=== PATIENT | female | born 1930 | race Caucasian/White ===

== ENCOUNTER 2016-11-18 19:08 | Inpatient (IN) | payer MEDICARE, OTHER ==
[~2016-11-18 19:08] MED LIST: ISOVUE-370 76%-LOCM 1 ML ONE
[2016-11-18 20:07] LABS: #Basophils 0.1 thou/uL (0.0-0.2); #Lymphocytes 0.6 thou/uL (1.20-3.40); #Monocytes 1.1 thou/uL (0.11-0.59); #Neutrophils 8.8 thou/uL (1.40-6.50); %Basophils 0.5 % (0.0-1.0); %Eosinophils 0.1 % (0.0-10.0); %Lymphocytes 5.4 % (21.0-51.0); Hematocrit 32.8 % (36.0-47.0); Mean Platelet Volume 5.4 fL (7.4-10.4); Red Blood Cell (RBC) Count 3.23 mill/uL (4.20-5.40); White Blood Cell (WBC) Count 10.4 thou/uL (4.8-10.8)
[2016-11-18 20:42] LABS: ALT (SGPT) 100 U/L (8-55); AST (SGOT) 126 U/L (5-34); Alkaline Phosphatase 69 U/L (40-150); Anion Gap 13 mmol/L (10-20); BUN (Urea Nitrogen) 36 mg/dL (9.8-20.1); CK (CPK) 875 U/L (29-168); Calc. Creatinine Clearance 0 mL/min (70-130); Calcium 8.2 mg/dL (7.8-10.44); Carbon Dioxide 26 mmol/L (23-31); Chloride 100 mmol/L (98-107); Estimated GFR-MDRD 86; Globulin 1.9 g/dL (2.4-3.5); Protein, Total 4.4 g/dL (6.0-8.3)
[2016-11-18 20:46] LABS: Bilirubin Negative (Negative); Blood, Urine Small (Negative); Glucose, Urine (Dipstick) Negative (Negative); Ketone, Urine 15 mg/dL (Negative); Nitrite Negative (Negative); Protein, Urine (Dipstick) Trace mg/dL (Neg-Trace)
[2016-11-18 21:00] LABS: Bacteria/HPF None Seen HPF (None Seen); Hyaline Casts/LPF 4-6 HYALINE CAST LPF (0-3 Hyaline); RBC/HPF 0-3 HPF (0-3); Squamous Epithelial 0-3 HPF (0-3); WBC/HPF 0-3 HPF (0-3)
--- NOTE | 2016-11-18 21:11 | RAD ---
SINGLE VIEW OF THE CHEST: 11/18/16 COMPARISON: 11/17/16 HISTORY: Hypotension and bloody emesis. FINDINGS: Single view of the chest shows an enlarged but stable cardiomediastinal silhouette with atherosclero tic calcifications in the aorta. Increased interstitial markings are present. There is no evidence o f consolidation, mass, or pleural effusion. IMPRESSION: 1. Cardiomegaly. 2. Atherosclerotic disease. POS: [facility]
--- NOTE | 2016-11-18 21:42 | CT ---
CT ABDOMEN AND PELVIS WITH CONTRAST: 11/18/16 COMPARISON: None. HISTORY: Confusion with nausea and vomiting. Bloody emesis. TECHNIQUE: Multiple contiguous axial images were obtained in a CT of the abdomen and pelvis with contrast. Kevin nal reformats were performed. FINDINGS: There are hypodensities in the kidneys measuring up to 2.1 cm in size which represents cysts. The ga llbladder is not seen and may have been removed. There is mild central intrahepatic biliary dilatati on which may be a reservoir effect from prior cholecystectomy. No focal liver masses are seen. The a drenal glands, spleen, and pancreas are unremarkable. The patient has bilateral hip prostheses which limit evaluation of the pelvis. Moderate stool is see n throughout the colon. The large and small bowel are otherwise unremarkable. No free air, free flui d, or stranding changes are seen in the abdomen or pelvis. Atherosclerotic calcifications are seen i n the aorta. No abdominal or pelvic lymphadenopathy are seen. There are small bilateral pleural effusions with adjacent atelectasis. Degenerative changes are see n in the spine. The abdominal wall soft tissues are unremarkable. IMPRESSION: 1. No evidence of acute intra-abdominal/pelvic abnormality. 2. Bilateral renal cysts. 3. Mild central intrahepatic biliary dilatation may be a reservoir effect from prior cholecyste ctomy. POS: [facility]
[2016-11-18] MEDS ORDERED: Sodium Chloride 0.9% 100 ML ONE (22:08)
[2016-11-18] MEDS ORDERED: Vancomycin HCl 500 MG in Sodium Chloride 0.9% 100 ML IVPB SCH (23:15)
[2016-11-18] MEDS ORDERED: Ondansetron HCl/PF 4 MG/2 ML Vial IVP PRN (23:42)
[2016-11-18] MEDS ORDERED: Sodium Chloride 0.9% 1,000 ML IV SCH (23:45)
--- NOTE | 2016-11-18 23:48 | PDOC.EVN ---
Event Note - Event Note Event Note: [id number] h&p dictated 1. Dyspnea + possible pneumonia 2. Nausea, vomiting + Abnormal lft 3. Encephalopathy: r/os troke, ct head plan: see orders
[2016-11-19] MEDS ORDERED: Acetaminophen 325 MG TAB PO PRN (00:18)
[2016-11-19] MEDS ORDERED: Ondansetron HCl/PF 4 MG/2 ML Vial IVP PRN (00:18)
[2016-11-19] MEDS ORDERED: Albuterol Sulfate 2.5 mg/3 ml Neb NEB PRN (00:25)
[2016-11-19] MEDS ORDERED: Lorazepam 2 MG/ML VIAL SLOW IVP PRN (00:27)
[2016-11-19] MEDS ORDERED: Sodium Chloride 0.9% 1,000 ML IV SCH (00:30)
[2016-11-19] MEDS ORDERED: Meropenem 1 GM in Sodium Chloride 0.9% 100 ML IVPB SCH ×2 (01:00→03:30)
[2016-11-19] MEDS: Sodium Chloride 0.9% 1,000 ML IV SCH ×2 (02:30→16:07)
[2016-11-19] MEDS ORDERED: Haloperidol Lactate 5 MG/ML VIAL SLOW IVP SCH (02:30)
[2016-11-19 03:27] VITALS: BMI 25.0
[2016-11-19] MEDS ORDERED: VANCOMYCIN IVPB PRN (03:39)
[2016-11-19 05:42] LABS: Anion Gap 12 mmol/L (10-20); BUN (Urea Nitrogen) 37 mg/dL (9.8-20.1); Calc. Creatinine Clearance 67 mL/min (70-130); Carbon Dioxide 23 mmol/L (23-31); Chloride 103 mmol/L (98-107); Estimated GFR-MDRD Greater than 90
--- NOTE | 2016-11-19 07:11 | HP ---
DATE OF ADMISSION: 11/18/2016 CHIEF COMPLAINT: Nausea, vomiting, delirium. HISTORY OF PRESENT ILLNESS: The patient is an 86-year-old female with past medical history of hypertension, anxiety, posttraumatic stress disorder, GERD, asthma, now came to the ER because of nausea, vomiting. According to the patient, patient recently had right hip surgery done and is currently in rehabilitation. Patient was having confusion and lethargy for the past 5 days. Due to the confusion got worse, the patient started getting more anxious. Patient started having trouble breathing also so patient was brought to the ER. Initially, the patient was brought to ER because the patient was having nausea and vomiting. Upon ER arrival, the patient was more anxious, so patient was currently getting admitted. No other history is available from the patient at this time. According to the granddaughter, the patient was confused for the last few days. Initially, the confusion was suspected secondary to pain medication, but the pain medication was stopped a few days back, where the patient is still confused. No other complaints available on the patient. PAST MEDICAL HISTORY: As per HPI. PAST SURGICAL HISTORY: Hip surgery. SOCIAL HISTORY: No smoking, no alcohol, no drugs. FAMILY HISTORY: Reviewed. MEDICATIONS: Reviewed. REVIEW OF SYSTEMS: None available from the patient, but according to the granddaughter, patient has chronic cough. Patient having some sputum production and chest congestion and along with that, patient has some anxiety problems also. PHYSICAL EXAMINATION: CONSTITUTIONAL/VITAL SIGNS: At the time of H\T\P performed, blood pressure is 120/70, afebrile, pulse oximetry 97% on room air, respiratory rate of 18 to 20. GENERAL APPEARANCE: Patient appears tired. HEENT: Anterior naris patent. Nose normal. Ears normal. Teeth intact. Tongue is moist. NECK: Supple. No JVD. CARDIOVASCULAR SYSTEM: S1 and S2 present. Regular rate and rhythm. No murmurs , no rubs, no gallops. RESPIRATORY SYSTEM: No wheezing. Positive for rhonchi and crackles present. GASTROINTESTINAL: Abdomen is soft nontender, no guarding, no organomegaly. MUSCULOSKELETAL: Right hip positive for the same ecchymosis present on right thigh. PSYCHIATRIC: Mood calm, slightly anxious. CRANIAL NERVE SYSTEM: Patient is awake, not oriented. Follows some commands. LABORATORY DATA: Labs at the time of H\T\P performed was sodium 135, potassium 4.2, chloride of 100, CO2 of 26, BUN of 36, creatinine 0.65, AST 126, ALT 100, ammonia 21. Troponin is 0.030. Serum total protein 4.4. White count 10.4, hemoglobin 10.7, platelet count is 296. ASSESSMENT AND PLAN: The patient is an 86-year-old female. 1. Dyspnea plus cough and chest congestion, need to rule out pneumonia. Chest x-ray, no obvious infiltrate seen. We will start patient on IV antibiotics empirically for possible aspiration and we will monitor patient closely. 2. Nausea, vomiting plus abnormal LFTs. CT of the abdomen did not show any intraabdominal pathology, but positive for mild central intrahepatic biliary dilatation seen. The patient did have a cholecystectomy done, we will monitor the patient closely and we will start the patient on IV fluids and we will keep patient n.p.o. 3. Anxiety, p.r.n. anxiolytics. 4. Asthma. Plan to start patient on breathing treatments and we will monitor respiratory status closely. We will start the patient on some IV Solu-Medrol 40 q.12 h. also. 5. History of gastroesophageal reflux disease, PPI. 6. Abnormal cardiac enzymes: Will monitor cardiac enzymes closely. Will place patient on tele. Case was discussed in detail with the patient and patient's granddaughter. We will admit the patient to the IMU for close monitoring. ALVARO
[2016-11-19 07:19] LABS: #Lymphocytes 0.4 thou/uL (1.20-3.40); #Monocytes 0.4 thou/uL (0.11-0.59); %Basophils 0.2 % (0.0-1.0); %Eosinophils 0.1 % (0.0-10.0); %Lymphocytes 2.4 % (21.0-51.0); %Monocytes 2.5 % (0.0-10.0); Hematocrit 21.9 % (36.0-47.0); Mean Platelet Volume 5.2 fL (7.4-10.4); Red Blood Cell (RBC) Count 2.16 mill/uL (4.20-5.40); White Blood Cell (WBC) Count 17.9 thou/uL (4.8-10.8)
[2016-11-19] MEDS: Heparin 5,000 UNITS/ML VIAL SC SCH ×3 (07:37→20:43)
--- NOTE | 2016-11-19 07:47 | CT ---
PRELIMINARY REPORT/[facility]/EMERGENCY AFTER HOURS PROCEDURE: EXAM: CT Head Without Intravenous Contrast CLINICAL HISTORY: 86 years old, female; Signs and symptoms; Altered mental status/memory loss; Confusion or disorienta tion; Patient HX: AMS TECHNIQUE: Axial computed tomography images of the head/brain without intravenous contrast. COMPARISON: No relevant prior studies available. FINDINGS: Brain: Mild volume loss No hemorrhage. Mild white matter disease. No edema. Ventricles: Unremarkable. No ventriculomegaly. Bones/joints: Unremarkable. No acute fracture. Soft tissues: Unremarkable. Sinuses: Unremarkable as visualized. No acute sinusitis. Mastoid air cells: Unremarkable as visualized. No mastoid effusion. IMPRESSION: No intracranial hemorrhage.Please see discussion above. Thank you for allowing us to participate in the care of your patient. Dictated and Authenticated by: Cristopher Paez MD 11/19/2016 12:35 AM Central Time ([place] \T\ Jose L) FINAL REPORT CT BRAIN WITHOUT CONTRAST: I agree with the preliminary report given by Dr. Cristopher Paez of [facility]. POS: [facility]
[2016-11-19 07:58] LABS: Hematocrit 21.8 % (36.0-47.0)
[2016-11-19] MEDS: Famotidine/PF 20 mg/2ml Vial SLOW IVP SCH (08:09)
--- NOTE | 2016-11-19 09:07 | PDOC.PN ---
- Subjective Encounter Start Date: 11/19/16 Encounter Start Time: 09:05 Subjective: Confused -: No current agitation -: Fever recorded this AM - Objective MAR Reviewed: Yes Vital Signs & Weight: Vital Signs (12 hours) Temp Pulse Resp BP Pulse Ox 11/19/16 08:00 100.1 F H 90 20 131/42 L 100 11/19/16 07:45 100 25 H 91 L 11/19/16 07:44 99.9 F H 100 24 H 93 L 11/19/16 04:00 99.9 F H 100 24 H 119/46 L 93 L 11/19/16 03:05 103 H 29 H 98 11/19/16 01:20 99.9 F H 100 24 H 92 L 11/19/16 00:35 99.4 F 94 26 H 113/39 L 92 L Weight Weight 137 lb 1.6 oz I&O: 11/18/16 11/19/16 11/20/16 06:59 06:59 06:59 Intake Total 420 Output Total 650 Balance -230 Result Diagrams: 11/19/16 07:43 11/19/16 04:28 Phys Exam - Physical Examination Constitutional: NAD HEENT: moist MMs, sclera anicteric Neck: no nodes, no JVD Respiratory: no wheezing, no rales Cardiovascular: no significant murmur, no rub Gastrointestinal: soft confused Lymphatic: no nodes Dx/Plan (1) Encephalopathy Code(s): G93.40 - ENCEPHALOPATHY, UNSPECIFIED Status: Acute (2) Acute respiratory failure Code(s): J96.00 - ACUTE RESPIRATORY FAILURE, UNSP W HYPOXIA OR HYPERCAPNIA Status: Acute (3) Nausea & vomiting Code(s): R11.2 - NAUSEA WITH VOMITING, UNSPECIFIED Status: Acute - Plan * AMS: CT brain without acute issue, appreciate neurology consult * Acute Respiratory Failure with Fever and Leukocytosis (likely PNA): CXR without infiltrate, appreciate pulm input, continue abx, Bcxs: NGTD * N/V/Elevated LFTs: CT a/p with mild central intrahepatic bilary dilatation, check LFTS in AM, prn antiemetics * Physical Debility: PT/OT * check labs in AM
--- NOTE | 2016-11-19 10:43 | ULT ---
BILATERAL LOWER EXTREMITY VENOUS DUPLEX ULTRASOUND INCLUDING COLOR AND SPECTRAL DOPPLER IMAGING: Date: 11/19/16 HISTORY: 86-year-old female with bilateral leg edema and right leg bruising after falling. FINDINGS: Exam performed from groin to ankle, including visualized greater saphenous, common femoral, superfic ial femoral, profunda femoral, popliteal, trifurcation, and posterior tibial vein regions are evalua belgica. There is phasic flow at all levels with normal compressibility and normal augmentation. No intr aluminal thrombus. IMPRESSION: No evidence for deep venous thrombosis. POS: [facility]
[2016-11-19] MEDS ORDERED: Vancomycin HCl 1 GM in Sodium Chloride 0.9% 250 ML 300 ML IVPB SCH (11:00)
--- NOTE | 2016-11-19 11:29 | CON ---
DATE OF CONSULTATION: 11/19/2016 CONSULTING PHYSICIAN: Dr. Quoc Chance from the hospitalist group. REASON FOR CONSULTATION: Delirium. HISTORY OF PRESENT ILLNESS: This is an 86-year-old female, who had a hip replacement done about a w [place] ago. She was taken to the [facility] for rehabilitation. She has been developing confusion an d lethargy for the last 5 days apparently up to the point last night where she began having projecti le vomiting. She was subsequently transferred to this facility for further evaluation. All of the history is provided by the granddaughter, who was in attendance. Apparently, it has been suspected that the patient was having an adverse reaction to narcotic pain medication. PAST MEDICAL HISTORY: 1. Hypertension. 2. Osteoarthritis. 3. Asthma. 4. Anxiety. 5. Post-traumatic stress disorder. 6. Macular degeneration. 7. Gastroesophageal reflux. PAST SURGICAL HISTORY: She has had bilateral hip surgery. ALLERGIES: None. MEDICATIONS PRIOR TO ADMISSION: 1. Albuterol metered dose inhaler as needed. 2. Azithromycin 250 mg b.i.d. 3. Buspirone 5 mg b.i.d. 4. Calcium carbonate 500 mg 3 tablets daily. 5. Cholecalciferol 1000 international units 1 tablet t.i.d. 6. Citalopram 20 mg daily. 7. Cyanocobalamin 1000 mcg daily. 8. Breo Ellipta 200/25 one puff daily. 9. Lorazepam 1 mg b.i.d. 10. Losartan 100 mg daily. 11. Multivitamin 1 daily. 12. Pantoprazole 40 mg daily. 13. Verapamil 240 mg extended release daily. 14. Acetaminophen 325 mg 2 tablets every 4 hours as needed. 15. Acetaminophen/hydrocodone 10/325 two tablets every 4 hours as needed. 16. Bisacodyl 10 mg per rectum daily as needed. 17. Clonidine 0.1 mg every 6 hours. 18. Diphenhydramine 25 mg every 6 hours - not sure if this is p.r.n. or scheduled. 19. Loperamide 2 mg as needed. 20. Tramadol 50 mg every 6 hours as needed. SOCIAL HISTORY: Prior to this admission, she has been living in a senior independent living [facility]. She has no history of tobacco, alcohol, or illicit drug use. REVIEW OF SYSTEMS: Unobtainable secondary to patient's confusion. PHYSICAL EXAMINATION: VITAL SIGNS: Temperature 99.9, pulse 100, respirations 24, O2 saturation 93% on 2 liters, and blood pressure 119/46. GENERAL: The patient is an elderly female, who is confused. HEENT: Pupils reactive. Sclerae are anicteric. Oropharynx clear. NECK: Without adenopathy, JVD, or bruits. LUNGS: Clear to auscultation without wheezing or rhonchi. CARDIOVASCULAR: S1 and S2 regular, without murmur, rub, or gallop. ABDOMEN: Soft, slightly distended, hypoactive bowel sounds. EXTREMITIES: She has diffuse bruising from her right hip downward, left leg is clear. NEUROLOGIC: She moves all 4 extremities. LABORATORY DATA AND IMAGING: White blood cell count 17.9, hematocrit 21.9, and platelet count 351. Sodium 134, potassium 4.2, chloride 103, CO2 of 23, BUN 37, creatinine 0.5, glucose 105. Chest x-r ay shows cardiomegaly without mass, effusion, or infiltrate. She did have a venogram on 11/14/2016, which showed no evidence of DVT on either side. Abdominal CT showed no significant findings. ASSESSMENT: 1. Acute delirium - likely secondary to either medications or perhaps underlying infection. 2. Precipitous drop in hemoglobin - need to recheck hemoglobin and hematocrit from this morning. 3. Nauseas/vomiting - likely related to some type of small-bowel obstruction. 4. History of asthma - in no distress at this time, therefore, I would minimize Solu-Medrol uses it for exacerbated delirium. PLAN: 1. Discontinue steroids. 2. Breathing treatments as needed. 3. Agree with antibiotics. 4. Recheck Doppler, lower extremity ultrasound. 5. Recheck H and H. 6. Minimize any extraneous medications.
[2016-11-19] MEDS: Meropenem 1 GM in Sodium Chloride 0.9% 100 ML IVPB SCH ×2 (14:11→19:24)
[2016-11-19] MEDS ORDERED: Acetaminophen 1,000 MG in Premix Bag 1 BAG IVPB PRN (17:11)
[2016-11-19] MEDS: Vancomycin HCl 1 GM in Premix Bag 1 BAG IVPB SCH (23:40)
--- NOTE | 2016-11-19 23:47 | CON ---
DATE OF CONSULTATION: 11/19/2016 REFERRING PROVIDER: Dr. Quoc Chance. REASON FOR CONSULTATION: Altered mental status. HISTORY OF PRESENT ILLNESS: Ms. Sanchez is a pleasant 86-year-old female who has been con sulted for evaluation of altered mental status. History is obtained from daughter who was present a t bedside. Daughter reports that patient recently underwent hip surgery at [facility]. This was done on 11/10/2016. After the surgery, she was discharged to rehab facility. Whgu[place] bar in the rehab, she was receiving pain medications for her pain. On approximately 4 to 5 days ago, she started having increasing episodes of confusion. She was having hallucinations and delusions. She was also talking out of her head. She was getting very anxious and combative. She was also be coming more and more weak. Occupational therapy and physical therapy in the rehab were having extre rosario difficult times to get her to stand up and walk. On yesterday, she had an episode of large vom iting. This concerned her as she has a prior history of a bowel blockage and she was worried that t his may be causing her confusion and episode of vomiting and that is why she asked them to transfer to the [facility]. The daughter reports that the patient prior to this was leading a n active lifestyle and was oriented to person, place, and time. Her memory has been intact otherwis e. PAST MEDICAL HISTORY: Significant for hypertension, GERD, asthma, posttraumatic stress disorder, an d anxiety. PAST SURGICAL HISTORY: Significant for recent hip surgery. FAMILY HISTORY: Noncontributory. SOCIAL HISTORY: She does not smoke cigarettes, drink alcohol, or use illicit drugs. CURRENT MEDICATIONS: Please review MAR. ALLERGIES: No known drug allergies. REVIEW OF SYSTEMS: Could not be obtained. PHYSICAL EXAMINATION: VITAL SIGNS: Blood pressure of 151/56, pulse of 99, temperature of 99.3, respirations of 22, O2 sat urations of 88% on room air. GENERAL: Well-developed, well-nourished , female in no apparent distress. RESPIRATORY: Clear to auscultation bilaterally. CARDIOVASCULAR: Regular rate and rhythm. NEUROLOGIC: Mental status: The patient is awake and alert, but disoriented to person, place, and t chivo. She is able to state her name, but has given a wrong age and wrong current year. She was able to follow some simple commands. Speech and language appears fluent. Cranial nerves: Pupils are 3 mm and reactive. Visual lamb are full to threat. Extraocular muscles are intact. Face is symme tric. Tongue and uvula are midline. Motor exam showed normal tone and bulk with 5/5 strength in conchis th upper and lower extremities, is on restraint in the right lower extremity, but still able to perf orm hip flexion and dorsiflexion and plantarflexion. Reflexes 2+ reflexes in both upper and lower e xtremities. Babinski: Plantar responses flexion bilaterally. Sensory: Sensation is intact and sy mmetric. Gait and Romberg coordination could not be tested. LABORATORY DATA: Reviewed, which included CBC, CMP, and urinalysis, which is significant for WBC of 17.9, hemoglobin 6.9, hematocrit of 21.8. Sodium of 134, BUN of 37, creatinine of 0.57, AST of 126 , ALT of 100, otherwise unremarkable. IMAGING STUDIES: CT of the head without contrast was reviewed, which showed no acute intracranial a bnormality. IMPRESSION: Altered mental status, likely toxic metabolic encephalopathy. ASSESSMENT AND PLAN: Ms. Sanchez is a pleasant 86-year-old female with a recent right hip surgery, presented with the confusion and delirium. I have reviewed her CT of the head without con trast, which showed no acute intracranial abnormality. Her neurological exam is a focal except the altered mentation. This would be more consistent with the patient's toxic metabolic encephalopathy. There is no further neurologic workup needed from my standpoint. Continue supportive care. Emma radha current medical management. Thank you for your consultation.
--- NOTE | 2016-11-20 00:09 | CON ---
ORTHOPEDIC CONSULTATION NOTE DATE OF CONSULTATION: 11/19/2016 REQUESTING PHYSICIAN: Quoc Chance M.D. BRIEF HISTORY OF PRESENT ILLNESS: Patient is an 86-year-old female who was admitted to [facility] 11/18 from [facility] where she was recovering from a right total hip arthroplasty. The patient began to develop delirium as well as nausea, vomiting, and as such was transferred to [place]. I was asked to see the patient due to the fact that she is now status post total hip arthroplasty on 11/10 and there were questions regarding her mobility and postoperative care. Patient has been very confused. She has required some restraints to prevent her from injuring herself and this includes tethering of her legs to prevent her from climbing out of bed. Her confusion is really not signific antly improved. She is still not really coherent or able to give any history herself. Her daughter is at bedside and is the source of this history of present illness. PAST MEDICAL HISTORY: Remarkable for asthma, gastroesophageal reflux disease and most recently deli rium, also history of anxiety and posttraumatic stress disorder. PAST SURGICAL HISTORY: Includes right total hip arthroplasty. SOCIAL HISTORY: Nonsmoker. No alcohol, no drugs. FAMILY HISTORY: Noncontributory. MEDICATIONS: I will refer you to medication reconciliation form. REVIEW OF SYSTEMS: I will refer you to the history and physical. She does not report any recent fe vers or chills. No apparent chest pain or shortness of breath and no complaints of numbness or ting ling in the lower extremity. PHYSICAL EXAMINATION: VITAL SIGNS: The patient is examined in her hospital bed in the ICU. Temperature of 99.3 degrees F ahrenheit, heart rate of 99, respiratory rate of 22 and blood pressure 151/56. GENERAL: She is not answering questions, is fidgeting with her sheets and blankets on her bed, tryi ng to pull out her Ribeiro catheter and generally agitated. HEENT: Atraumatic and normocephalic. HEART: Shows a regular rate and rhythm. LUNGS: Remarkable for breathing that is unlabored. EXTREMITIES: Remarkable for right lower extremity with a healing anterior incision from her total h ip arthroplasty. She is found to have ecchymoses along the medial aspect of the thigh and along the posterior thigh with some ecchymosis extending down into the lateral calf and foot with some mild p itting edema present as well. She is able to wiggle her ankle and foot. Her calf is soft. LABORATORY DATA: She was found to have a white count on admission of 10.4. She currently has a hem atocrit of 21.8. IMAGING DATA: X-rays; no new x-rays of the hip have been obtained. ASSESSMENT: An 86-year-old lady, now admitted for delirium of unknown cause at present and now with a drop in hematocrit. She is status post total hip arthroplasty with Dr. Ace Carrasco on 11/10. PLAN: Today, I have discussed with the patient's daughter as well as nursing that they certainly ca n use restraints as needed. The acute blood loss a week out from surgery would be unusual for the t otal hip to be the source and instead we would consider certainly GI bleed or other reasons for this hematocrit drop. She still is in the window were deep venous thrombosis prophylaxis is needed. Dara glaser currently is on heparin and I will defer to primary care as well as intensive care for decisions r egarding deep venous thrombosis prophylaxis with heparin versus Lovenox versus aspirin. She may be mobilized as her delirium clears and physical therapy to just be cautious of anterior hip precaution s. We will follow the patient peripherally while she is here in the hospital.
[2016-11-20] MEDS: Meropenem 1 GM in Sodium Chloride 0.9% 100 ML IVPB SCH ×3 (03:27→19:43)
[2016-11-20] MEDS: Sodium Chloride 0.9% 1,000 ML IV SCH ×2 (06:47→17:10)
--- NOTE | 2016-11-20 08:50 | PRG ---
DATE OF SERVICE: 11/20/2016 SUBJECTIVE: The patient remains encephalopathic. Her words are more coherent today than yesterday. Her daughter was in the room. Daughter told me that she wanted the patient to be a DNR. PHYSICAL EXAMINATION: VITAL SIGNS: Temperature 98.2, pulse 110, respirations 20, O2 sat 97% on 2 liters, blood pressure 1 64/55. HEENT: Unremarkable. NECK: No JVD. LUNGS: Coarse breath sounds. CARDIAC: S1 and S2 regular. ABDOMEN: Soft. EXTREMITIES: She has bruising over right lower extremity. LABORATORY DATA: Pending for today. ASSESSMENT: 1. Anemia. 2. Encephalopathy. 3. Status post right hip surgery. PLAN: 1. Transfuse 1 unit of PRBC. 2. Continue withhold any meds that could be aggravating delirium. 3. Follow H\T\H. 4. Continue empiric antibiotics for the time being.
[2016-11-20] MEDS: Famotidine/PF 20 mg/2ml Vial SLOW IVP SCH (08:57)
--- NOTE | 2016-11-20 09:06 | PDOC.PN ---
- Subjective Encounter Start Date: 11/20/16 Encounter Start Time: 09:04 Subjective: No overnight issues -: No agitation -: No n/v - Objective Resuscitation Status: Resuscitation Status DNR:Do Not Resuscitate MAR Reviewed: Yes Vital Signs & Weight: Vital Signs (12 hours) Temp Pulse Resp BP Pulse Ox 11/20/16 08:00 97.5 F L 108 H 22 H 166/68 H 92 L 11/20/16 07:25 110 H 20 97 11/20/16 04:09 98.2 F 109 H 24 H 164/55 H 92 L 11/19/16 23:11 93 L 11/19/16 23:05 99.8 F H 114 H 22 H 150/60 H 93 L Weight Weight 137 lb 1.6 oz I&O: 11/19/16 11/20/16 11/21/16 06:59 06:59 06:59 Intake Total 420 980 Output Total 650 1150 Balance -230 -170 Result Diagrams: 11/19/16 07:43 11/19/16 04:28 Phys Exam - Physical Examination Constitutional: NAD HEENT: moist MMs, sclera anicteric Neck: no nodes Respiratory: no wheezing, no rales Cardiovascular: no significant murmur, no rub Gastrointestinal: soft, non-tender, positive bowel sounds Lymphatic: no nodes Skin: normal turgor, cap refill <2 seconds Dx/Plan (1) Encephalopathy Code(s): G93.40 - ENCEPHALOPATHY, UNSPECIFIED Status: Acute (2) Acute respiratory failure Code(s): J96.00 - ACUTE RESPIRATORY FAILURE, UNSP W HYPOXIA OR HYPERCAPNIA Status: Acute (3) Nausea & vomiting Code(s): R11.2 - NAUSEA WITH VOMITING, UNSPECIFIED Status: Acute - Plan * AMS: CT brain without acute issue, appreciate neurology consult (metabolic encephalopthy - no further work-up needed) * Acute Respiratory Failure with Fever and Leukocytosis (likely PNA): CXR without infiltrate, appreciate pulm input, continue abx, Bcxs: NGTD * N/V/Elevated LFTs: CT a/p with mild central intrahepatic bilary dilatation, check LFTS in AM, prn antiemetics * Physical Debility: PT/OT * Recent right total hip arthroplasty: appreciate ortho input * Anemia: s/p 1 unit PRBCs on 11-19-16 * check labs in AM
[2016-11-20 11:25] LABS: Hematocrit 21.7 % (36.0-47.0); Mean Platelet Volume 5.3 fL (7.4-10.4); Red Blood Cell (RBC) Count 2.13 mill/uL (4.20-5.40); White Blood Cell (WBC) Count 21.8 thou/uL (4.8-10.8)
[2016-11-20 11:43] LABS: Band 5 % (5-11); Hypochromia SLIGHT = 6-15 cells (100X) (0-5/hpf); Neutrophil 85 % (42-75); Ovalocytes SLIGHT = 2-5 cells (100X) (0-1/hpf); Polychromasia MODERATE = 3-4 cells (100X) (0-2/hpf)
[2016-11-20 11:48] LABS: ALT (SGPT) 125 U/L (8-55); AST (SGOT) 130 U/L (5-34); Alkaline Phosphatase 82 U/L (40-150); Anion Gap 12 mmol/L (10-20); BUN (Urea Nitrogen) 31 mg/dL (9.8-20.1); Bilirubin, Total 0.9 mg/dL (0.2-1.2); Calc. Creatinine Clearance 69 mL/min (70-130); Calcium 8.1 mg/dL (7.8-10.44); Carbon Dioxide 23 mmol/L (23-31); Chloride 111 mmol/L (98-107); Estimated GFR-MDRD Greater than 90; Globulin 2.4 g/dL (2.4-3.5); Protein, Total 5.1 g/dL (6.0-8.3)
[2016-11-20] MEDS: Heparin 5,000 UNITS/ML VIAL SC SCH ×3 (12:34→21:10)
[2016-11-20] MEDS ORDERED: Furosemide 20 MG/2 ML VIAL SLOW IVP SCH (21:00)
[2016-11-20 22:29] LABS: Vancomycin, Trough 5.3 ug/mL
[2016-11-20] MEDS: Vancomycin HCl 1 GM in Premix Bag 1 BAG IVPB SCH (23:10)
[2016-11-21] MEDS: Meropenem 1 GM in Sodium Chloride 0.9% 100 ML IVPB SCH ×3 (02:28→19:21)
[2016-11-21 06:40] LABS: Anion Gap 17 mmol/L (10-20); BUN (Urea Nitrogen) 25 mg/dL (9.8-20.1); Calc. Creatinine Clearance 73 mL/min (70-130); Carbon Dioxide 21 mmol/L (23-31); Chloride 108 mmol/L (98-107); Estimated GFR-MDRD Greater than 90
[2016-11-21 07:20] LABS: Hematocrit 24.9 % (36.0-47.0); Mean Platelet Volume 5.8 fL (7.4-10.4); Red Blood Cell (RBC) Count 2.48 mill/uL (4.20-5.40); White Blood Cell (WBC) Count 22.4 thou/uL (4.8-10.8)
[2016-11-21] MEDS ORDERED: Potassium Chloride 40 MEQ in Premix Bag 1 BAG IVPB SCH (08:00)
--- NOTE | 2016-11-21 08:03 | PRG ---
DATE OF SERVICE: 11/21/2016 Ms. Sanchez continues to be confused, but not as combative as she was. PHYSICAL EXAMINATION: VITAL SIGNS: On exam her temperature is 99.0 with a T-max of 99.9, pulse 111, respirations 24, O2 s aturation in the low 90s to high 80s on 2 liters, blood pressure 155/67. GENERAL: She is awake. She is able to answer questions, but not appropriately. HEENT: She has thick secretions in her supraglottic region which are causing radiation of tubular b reath sounds in both lungs. CARDIAC: Cardiac rhythm is regular, without murmur. ABDOMEN: Soft, nontender. EXTREMITIES: Trace edema. LABORATORY DATA: Sodium 143, potassium 3.1, chloride 108, CO2 21, BUN 25, creatinine 0.5, glucose 1 10. White blood cell count 22.4, hemoglobin 7.9, hematocrit 24.9, platelet count 415. Micro shows no growth to date. ASSESSMENT: 1. She probably has chronic aspiration. 2. Encephalopathy. 3. Status post hip surgery. PLAN: 1. I NT suctioned her and was able to removed copious secretions from her supraglottic area. She m ay need a repeat NT suctioning throughout the day. 2. Continue the antibiotics, but I would discontinue the vancomycin since there has been no growth on cultures. 3. Consider decreasing IV fluids. 4. Replace potassium.
[2016-11-21] MEDS ORDERED: Potassium Chloride 40 MEQ, IV Admixture Fee 1 EACH in Sodium Chloride 0.9% 250 ML 250 ML IVPB SCH (08:15)
[2016-11-21] MEDS: Sodium Chloride 0.9% 1,000 ML IV SCH (08:17)
[2016-11-21 08:29] LABS: Band 14 % (5-11); Bite Cells SLIGHT = 2-5 cells (100X) (0-1/hpf); Burr Cells SLIGHT = 2-5 cells (100X) (0-1/hpf); Myelocyte 2 % (0-0); Neutrophil 70 % (42-75); Nucleated RBC 2 % (0); Polychromasia MODERATE = 3-4 cells (100X) (0-2/hpf)
[2016-11-21] MEDS: Dextrose 5 %-0.45 % NaCl 1,000 ML IV SCH (08:32)
[2016-11-21] MEDS: Heparin 5,000 UNITS/ML VIAL SC SCH ×3 (08:32→21:47)
[2016-11-21] MEDS: Famotidine/PF 20 mg/2ml Vial SLOW IVP SCH (08:32)
--- NOTE | 2016-11-21 08:41 | PDOC.PN ---
- Subjective Encounter Start Date: 11/21/16 Encounter Start Time: 08:40 Subjective: Confused; but more alert/awake today -: No agitation currently -: No fevers this AM - Objective Resuscitation Status: Resuscitation Status DNR:Do Not Resuscitate Vital Signs & Weight: Vital Signs (12 hours) Temp Pulse Resp BP Pulse Ox 11/21/16 07:35 99.3 F 109 H 22 H 90 L 11/21/16 07:31 89 L 11/21/16 07:28 111 H 24 H 89 L 11/21/16 07:07 99.3 F 109 H 22 H 167/61 H 91 L 11/21/16 04:00 99.0 F 111 H 22 H 155/67 H 93 L 11/21/16 03:09 94 L 11/21/16 00:52 94 L 11/21/16 00:00 99.9 F H 110 H 22 H 147/62 H 93 L 11/20/16 22:58 90 L 11/20/16 22:00 110 H 20 164/73 H 91 L Weight Weight 134 lb 6.4 oz I&O: 11/20/16 11/21/16 11/22/16 06:59 06:59 06:59 Intake Total 980 1270 Output Total 1150 2220 Balance -170 -950 Result Diagrams: 11/21/16 05:00 11/21/16 05:00 Phys Exam - Physical Examination Constitutional: NAD HEENT: moist MMs, sclera anicteric Neck: no nodes, no JVD Respiratory: no rales, no rhonchi Cardiovascular: no significant murmur, no rub Gastrointestinal: non-tender, positive bowel sounds confused Lymphatic: no nodes Skin: normal turgor, cap refill <2 seconds Dx/Plan (1) Encephalopathy Code(s): G93.40 - ENCEPHALOPATHY, UNSPECIFIED Status: Acute (2) Acute respiratory failure Code(s): J96.00 - ACUTE RESPIRATORY FAILURE, UNSP W HYPOXIA OR HYPERCAPNIA Status: Acute (3) Nausea & vomiting Code(s): R11.2 - NAUSEA WITH VOMITING, UNSPECIFIED Status: Acute - Plan * AMS: CT brain without acute issue, appreciate neurology consult (metabolic encephalopthy - no further work-up needed) * Acute Respiratory Failure with Fever and Leukocytosis (likely PNA): CXR without infiltrate, appreciate pulm input, continue abx, Bcxs: NGTD * N/V/Elevated LFTs: CT a/p with mild central intrahepatic bilary dilatation, prn antiemetics * Physical Debility: PT/OT * Recent right total hip arthroplasty: appreciate ortho input * Anemia: s/p 1 unit PRBCs on 11-19-16 * Hypokalemia: replace today and re-check labs in AM
[2016-11-21] MEDS ORDERED: Vancomycin HCl 1 GM in Premix Bag 1 BAG IVPB SCH (11:00)
[2016-11-21] MEDS ORDERED: Acetaminophen 1,000 MG in Premix Bag 1 BAG IVPB PRN (20:16)
[2016-11-22] MEDS: Meropenem 1 GM in Sodium Chloride 0.9% 100 ML IVPB SCH ×3 (03:29→20:46)
[2016-11-22] MEDS: Dextrose 5 %-0.45 % NaCl 1,000 ML IV SCH (03:45)
--- NOTE | 2016-11-22 04:27 | CON ---
DATE OF CONSULTATION: 11/21/2016 CHIEF COMPLAINT: Shortness of breath and confusion. HISTORY OF PRESENT ILLNESS: Ms. Sanchez is an 86-year-old woman who was admitted with altered menta l status. She is being treated for aspiration pneumonia. She has hypoxemia by O2 sats running in t he 88-90 range on oxygen by nasal cannula. She has been confused. She vomited the day that she cam e in, but has had no further vomiting. Currently, through the afternoon today, her mental status [place] s significantly improved according to her daughter. She is now oriented to her name and place and d ate. She had an evaluation by Speech Pathology today, which showed signs of aspiration with all con sistencies. The daughter is concerned that some of this was performed with foods that the patient d id not like the taste of and would like to continue further evaluation regarding that. The patient has been noted to be anemic during the hospital stay and she was required transfusion. She has no a bdominal pain. PAST MEDICAL HISTORY: Hypertension, asthma, PTSD, macular degeneration, gastroesophageal reflux. PAST SURGICAL HISTORY: Recent hip surgery. ALLERGIES: No known drug allergies. SOCIAL HISTORY: No alcohol, tobacco or drugs. FAMILY HISTORY: Negative for GI malignancy. MEDICATIONS: Currently include famotidine, subcutaneous heparin and meropenem. REVIEW OF SYSTEMS: Negative x10 systems reviewed except as stated in the history of present illness . PHYSICAL EXAMINATION: VITAL SIGNS: Temperature 97.9, pulse 115, blood pressure 193/81. GENERAL: She is in no acute distress. Her oxygen saturation is 90% on 3 L by nasal cannula. HEENT: Her eyes have no scleral icterus. Oropharynx is clear, without lesions. NECK: No cervical or supraclavicular lymphadenopathy. LUNGS: Have diffuse crackles and coarse breath sounds. HEART: Tachycardic, S1, S2. ABDOMEN: Soft, nontender, nondistended. Bowel sounds are present. EXTREMITIES: No lower extremity edema. LABORATORY DATA: Creatinine 0.55, bilirubin 0.9, AST 130, ALT 125, alkaline phosphatase 82, albumin 2.7. White blood cell count 22.4, hemoglobin 7.9, platelets 415. IMPRESSION: 1. Dysphagia with apparent chronic aspiration and aspiration pneumonia. The patient and her daught er indicate they would not be interested in undergoing esophagogastroduodenoscopy with PEG tube at t his point. They wish to continue to work with Speech Pathology to work on the best consistency for her. They do understand that continued oral intake is an ongoing risk for aspiration. 2. Aspiration pneumonia with hypoxia. 3. Anemia. She does not have overt gastrointestinal bleeding at this point. She has no abdominal pain or ongoing nausea. She did receive 1 unit transfusion yesterday. RECOMMENDATIONS: 1. She will continue to work with Speech Pathology. If the patient continues to show signs of aspi ration and the primary service determines with the family that they ultimately do decide to undergo or consider gastrostomy tube was an option and please call us back and we can reassess. 2. Follow for overt GI bleeding. She is a poor candidate for sedation this time given her respirat ory status. 3. I will sign off for now. Please call if GI can be of assistance.
[2016-11-22 06:01] LABS: Anion Gap 16 mmol/L (10-20); BUN (Urea Nitrogen) 16 mg/dL (9.8-20.1); Calc. Creatinine Clearance 78 mL/min (70-130); Calcium 7.7 mg/dL (7.8-10.44); Carbon Dioxide 22 mmol/L (23-31); Chloride 110 mmol/L (98-107); Estimated GFR-MDRD Greater than 90
[2016-11-22] MEDS: Famotidine/PF 20 mg/2ml Vial SLOW IVP SCH (08:00)
[2016-11-22] MEDS: Heparin 5,000 UNITS/ML VIAL SC SCH ×3 (08:00→20:47)
--- NOTE | 2016-11-22 10:19 | RAD ---
PORTABLE CHEST ONE VIEW: 11/22/2016 4:21 a.m. HISTORY: Pneumonia. COMPARISON: 11/18/2016 FINDINGS: The heart size is stable. The aorta is tortuous. There is patchy air space disease in the right up per and both lower lung lamb, with accompanying effusions. No pneumothoraces are seen. IMPRESSION: Pneumonia. POS: OFF
[2016-11-22 10:30] LABS: Iron 27 ug/dL (50-170)
[2016-11-22 10:31] LABS: Magnesium 1.4 mg/dL (1.6-2.6)
--- NOTE | 2016-11-22 13:29 | PRG ---
DATE OF SERVICE: 11/22/2016 SUBJECTIVE: This morning, she is better. Last night, she was confused. OBJECTIVE: VITAL SIGNS: Sats are 93% on 4 liters, pulse 110, temperature 97, blood pressure 106/69. HEENT: She failed a swallow test. CHEST: Decreased breath sounds without any wheezing. CARDIAC: Normal S1, S2. No gallops. ABDOMEN: Soft, no masses. LABORATORY DATA: Electrolytes are normal. X-ray showed bilateral infiltrate, bilateral pleural eff usion, right upper lobe pneumonia. IMPRESSION: Bilateral aspiration, respiratory failure, advanced age, probably dementia. She is a D O NOT RESUSCITATE. PLAN: Agree with the PEG. She is now safe to swallow. We will discuss with the granddaughter. In the meantime, neb treatment s and steroids. We will follow.
[2016-11-22] MEDS ORDERED: Magnesium 2 GM/NS 0.9% 100 ML 2 GM in Premix Bag 1 BAG IVPB SCH (13:30)
--- NOTE | 2016-11-22 13:38 | PDOC.PN ---
- Subjective Encounter Start Date: 11/22/16 Encounter Start Time: 13:30 Patient seen and examined, states she feels fine for now, she feels a little weak but otherwise has no other complaints. - Objective Resuscitation Status: Resuscitation Status DNR:Do Not Resuscitate Vital Signs & Weight: Vital Signs (12 hours) Temp Pulse Resp BP Pulse Ox 11/22/16 11:40 98.4 F 114 H 20 164/71 H 91 L 11/22/16 08:15 114 H 32 H 93 L 11/22/16 08:00 97.7 F 114 H 32 H 92 L 11/22/16 07:21 97.7 F 102 H 20 169/69 H 92 L 11/22/16 04:00 98.5 F 103 H 22 H 162/75 H 91 L Weight Weight 132 lb I&O: 11/21/16 11/22/16 11/23/16 06:59 06:59 06:59 Intake Total 1270 1700 Output Total 2220 2750 Balance -950 -1050 Result Diagrams: 11/21/16 05:00 11/22/16 05:05 Phys Exam - Physical Examination Constitutional: NAD HEENT: PERRLA, moist MMs, sclera anicteric Neck: no nodes, no JVD, supple Respiratory: no wheezing, no rales, no rhonchi Cardiovascular: RRR, no significant murmur, no rub Gastrointestinal: soft, non-tender, no distention Musculoskeletal: no edema, pulses present Neurological: non-focal, normal sensation Psychiatric: normal affect, A&O x 3 Skin: no rash, normal turgor Dx/Plan (1) Dysphagia Code(s): R13.10 - DYSPHAGIA, UNSPECIFIED Status: Acute (2) Iron deficiency Code(s): E61.1 - IRON DEFICIENCY Status: Acute (3) Iron deficiency anemia Code(s): D50.9 - IRON DEFICIENCY ANEMIA, UNSPECIFIED Status: Acute (4) Dyspnea Code(s): R06.00 - DYSPNEA, UNSPECIFIED Status: Acute - Plan * At this point in time patient continues to have dysphagia and still unable to fully swallow, all options discussed with the patient including options of PEG tube placement. * Patient states she does not want a PEG tube currently and she would like to try food orally. * Case d/w speech therapy to see if patient can swallow any food * Patient states that she would like to discuss any plans for PEG with two of her daughters first and then make a decision * Granddaughter at bedside who states she does not want a PEG to be placed, for now will await final decision once patient has arrived at one, she has the capacity to make her own decisions when I examined her * Patient also informed her iron levels were low and her potassium may have been low due to low Mg levels, will give IV magnesium 2g x 1 dose and venofer 200mg IV q24hrs x 3 doses * Case and plan d/w patient at length, she understands and agrees with this plan
[2016-11-22] MEDS: Iron Sucrose Complex 200 MG in Sodium Chloride 0.9% 250 ML 250 ML IVPB SCH (14:15)
[2016-11-22] MEDS ORDERED: Acetaminophen/Codeine 30-300mg Tablet PO PRN (22:15)
[2016-11-23] MEDS: Dextrose 5 %-0.45 % NaCl 1,000 ML IV SCH ×2 (03:32→23:45)
[2016-11-23] MEDS: Meropenem 1 GM in Sodium Chloride 0.9% 100 ML IVPB SCH ×4 (03:32→19:55)
[2016-11-23] MEDS ORDERED: Milk Of Magnesia 30 ML UDCUP PO PRN (07:13)
[2016-11-23] MEDS ORDERED: Loperamide HCl 2 MG CAP PO PRN (07:13)
[2016-11-23] MEDS ORDERED: Ondansetron ODT 4 MG TAB PO PRN (07:13)
[2016-11-23] MEDS ORDERED: Sodium Chloride 0.65% Nasal 44 ML BOT EA NARE PRN (07:13)
[2016-11-23] MEDS ORDERED: Mag-Al 1200 mg/1200 mg/30 ML UDCUP PO PRN (07:13)
[2016-11-23] MEDS ORDERED: Artificial Tears 18 DROP/0.9 ML EA EYE PRN (07:13)
[2016-11-23] MEDS ORDERED: Diabetic Tussin 200 MG/10 ML UDCUP PO PRN (07:13)
[2016-11-23] MEDS ORDERED: Senokot 8.6 MG TAB PO PRN (07:13)
[2016-11-23] MEDS ORDERED: Eucerin (Mineral Oil/Petrolatum,White) 30 gm Jar TOP PRN (07:13)
[2016-11-23] MEDS: Heparin 5,000 UNITS/ML VIAL SC SCH ×3 (08:49→19:56)
[2016-11-23] MEDS: Famotidine/PF 20 mg/2ml Vial SLOW IVP SCH (08:49)
--- NOTE | 2016-11-23 10:12 | PDOC.PN ---
- Subjective Encounter Start Date: 11/23/16 Encounter Start Time: 08:20 -: old records requested/rev pt is hypoxic and requires oxygen, she is tolerating current diet, family bedside - Objective Resuscitation Status: Resuscitation Status DNR:Do Not Resuscitate MAR Reviewed: Yes Vital Signs & Weight: Vital Signs (12 hours) Temp Pulse Resp BP Pulse Ox 11/23/16 10:05 105 H 28 H 88 L 11/23/16 08:04 97.8 F 103 H 20 150/64 H 74 L 11/23/16 06:44 104 H 90 L 11/23/16 04:00 98.0 F 99 20 163/69 H 91 L 11/23/16 02:45 90 L 11/23/16 02:20 24 H 90 L 11/23/16 00:00 97.5 F L 105 H 20 179/74 H 91 L 11/22/16 22:31 102 H 28 H 90 L Weight Weight 128 lb I&O: 11/22/16 11/23/16 11/24/16 06:59 06:59 06:59 Intake Total 1700 Output Total 2750 1225 Balance -1050 -1225 Result Diagrams: 11/21/16 05:00 11/22/16 05:05 Radiology Reviewed by me: Yes Phys Exam - Physical Examination Constitutional: NAD HEENT: PERRLA, moist MMs, sclera anicteric Neck: no JVD, supple bilateral coarse breath sound Cardiovascular: RRR, no significant murmur, no rub Gastrointestinal: soft, non-tender, no distention, positive bowel sounds Musculoskeletal: no edema, pulses present bruise left UE due to IV Neurological: moves all 4 limbs Lymphatic: no nodes Psychiatric: normal affect Skin: no rash, normal turgor Dx/Plan (1) Abnormal LFTs Code(s): R79.89 - OTHER SPECIFIED ABNORMAL FINDINGS OF BLOOD CHEMISTRY Status : Acute (2) Acute encephalopathy Code(s): G93.40 - ENCEPHALOPATHY, UNSPECIFIED Status: Acute (3) Acute respiratory failure with hypoxemia Code(s): J96.01 - ACUTE RESPIRATORY FAILURE WITH HYPOXIA Status: Acute (4) Aspiration pneumonia Code(s): J69.0 - PNEUMONITIS DUE TO INHALATION OF FOOD AND VOMIT Status: Acute (5) Demand ischemia Code(s): I24.8 - OTHER FORMS OF ACUTE ISCHEMIC HEART DISEASE Status: Acute (6) Hypokalemia Code(s): E87.6 - HYPOKALEMIA Status: Acute (7) Hypomagnesemia Code(s): E83.42 - HYPOMAGNESEMIA Status: Acute (8) Oropharyngeal dysphagia Code(s): R13.12 - DYSPHAGIA, OROPHARYNGEAL PHASE Status: Acute (9) Sepsis with acute organ dysfunction Code(s): A41.9 - SEPSIS, UNSPECIFIED ORGANISM; R65.20 - SEVERE SEPSIS WITHOUT SEPTIC SHOCK Status: Acute (10) Macrocytic anemia Code(s): D53.9 - NUTRITIONAL ANEMIA, UNSPECIFIED Status: Chronic - Plan cont current plan of care, plan discussed w/ family, marino catheter, continue antibiotics, PT/OT, psychotherapist social worker, speech therapy, respiratory therapy * pt has decided that she will not go for PEG tube * she is at risk for recurrent aspiration pneumonia and she understands that * family prefers SNU on discharge * she is not ready for discharge yet * will repeat labs tomorrow * meanwhile will continue iv antibiotics . meropenam * medication reviewed as below * symptomatic treatment. Review of Systems - Review of Systems Constitutional: negative: Fever, Chills, Sweats, Weakness, Malaise, Other Respiratory: Cough, Shortness of Breath. negative: Dry, Hemoptysis, SOB with Excertion, Pleuritic Pain, Sputum, Wheezing Cardiovascular: negative: Chest Pain, Palpitations, Orthopnea, Paroxysmal Noc. Dyspnea, Edema, Light Headedness, Other Gastrointestinal: negative: Nausea, Vomiting, Abdominal Pain, Diarrhea, Constipation, Melena, Hematochezia, Other Genitourinary: negative: Dysuria, Frequency, Incontinence, Hematuria, Retention , Other Musculoskeletal: negative: Neck Pain, Shoulder Pain, Arm Pain, Back Pain, Hand Pain, Leg Pain, Foot Pain, Other Skin: negative: Rash, Lesions, Pantera, Bruising, Other - Medications/Allergies Allergies/Adverse Reactions: Allergies Allergy/AdvReac Type Severity Reaction Status Date / Time No Known Drug Allergies Allergy Verified 11/18/16 23:08 Medications: Current Medications Acetaminophen (Tylenol) 650 mg PO Q4H PRN PRN Reason: Headache/Fever or Pain Acetaminophen/Codeine Phosphate (Tylenol #3) 1 tab PO Q4H PRN PRN Reason: Pain Last Admin: 11/22/16 22:32 Dose: 1 tab Al Hydroxide/Mg Hydroxide (Maalox) 15 ml PO Q4H PRN PRN Reason: Heartburn or Indigestion Albuterol Sulfate (Ventolin) 2.5 mg NEB Q2H PRN PRN Reason: Wheezing Last Admin: 11/21/16 00:52 Dose: 2.5 mg Albuterol/Ipratropium (Duoneb) 3 ml NEB [id number] [facility] Last Admin: 11/23/16 10:05 Dose: 3 ml Artificial Tears (Tears Naturale) 0 drop EA EYE PRN PRN PRN Reason: Dry Eyes Famotidine (Pepcid) 20 mg SLOW IVP DAILY [facility] Last Admin: 11/22/16 08:00 Dose: 20 mg Guaifenesin (Robitussin Sf) 200 mg PO Q4H PRN PRN Reason: Cough Heparin Sodium (Porcine) (Heparin) 5,000 units SC TID [facility] Last Admin: 11/22/16 20:47 Dose: 5,000 units Hydralazine HCl (Apresoline) 10 mg SLOW IVP Q4H PRN PRN Reason: SBP <180 Last Admin: 11/22/16 20:50 Dose: 10 mg Meropenem 1 gm/ Sodium (Chloride) 100 mls @ 200 mls/hr IVPB 0300,1100,1900 [facility] Last Admin: 11/23/16 03:32 Dose: 100 mls Dextrose/Sodium Chloride (D5 1/2 Ns) 1,000 mls @ 50 mls/hr IV .Q20H [facility] Last Admin: 11/23/16 03:32 Dose: 1,000 mls Iron Sucrose 200 mg/ Sodium (Chloride) 260 mls @ 125 mls/hr IVPB Q24HR [facility] Stop: 11/24/16 15:35 Last Admin: 11/22/16 14:15 Dose: 260 mls Loperamide HCl (Imodium) 2 mg PO PRN PRN PRN Reason: Diarrhea/Loose Stools Magnesium Hydroxide (Milk Of Magnesium) 30 ml PO DAILYPRN PRN PRN Reason: Constipation Mineral Oil/White Petrolatum (Eucerin Cream) 0 gm TOP BIDPRN PRN PRN Reason: Dry Skin Ondansetron HCl (Zofran) 4 mg IVP Q6H PRN PRN Reason: Nausea/Vomiting Ondansetron HCl (Zofran Odt) 4 mg PO Q6H PRN PRN Reason: Nausea/Vomiting Senna (Senokot) 2 tab PO HSPRN PRN PRN Reason: Constipation Sodium Chloride (Flush - Normal Saline) 10 ml IVF Q12HR [facility] Last Admin: 11/22/16 20:47 Dose: 10 ml Sodium Chloride (Flush - Normal Saline) 10 ml IVF PRN PRN PRN Reason: Saline Flush Sodium Chloride ([place] Nasal [place] 0.65%) 0 ml EA NARE QIDPRN PRN PRN Reason: Nasal Congestion
[2016-11-23] MEDS: Iron Sucrose Complex 200 MG in Sodium Chloride 0.9% 250 ML 250 ML IVPB SCH (13:38)
[2016-11-23] MEDS: Nystatin 500,000 UNITS/5 ML UDCUP SSW SCH ×3 (13:50→19:56)
[2016-11-23] MEDS ORDERED: Zolpidem Tartrate 5 MG TAB PO PRN (14:02)
[2016-11-24] MEDS: Meropenem 1 GM in Sodium Chloride 0.9% 100 ML IVPB SCH ×2 (04:43→10:34)
[2016-11-24 05:41] LABS: ALT (SGPT) 78 U/L (8-55); AST (SGOT) 42 U/L (5-34); Alkaline Phosphatase 82 U/L (40-150); Anion Gap 16 mmol/L (10-20); BUN (Urea Nitrogen) 17 mg/dL (9.8-20.1); Bilirubin, Total 0.6 mg/dL (0.2-1.2); Calc. Creatinine Clearance 71 mL/min (70-130); Calcium 7.9 mg/dL (7.8-10.44); Carbon Dioxide 26 mmol/L (23-31); Chloride 108 mmol/L (98-107); Estimated GFR-MDRD Greater than 90; Globulin 2.7 g/dL (2.4-3.5); Protein, Total 5.1 g/dL (6.0-8.3)
[2016-11-24 06:02] LABS: Band 3 % (5-11); Hematocrit 28.8 % (36.0-47.0); Metamyelocyte 3 % (0-0); Neutrophil 83 % (42-75); Nucleated RBC 1 % (0); Red Blood Cell (RBC) Count 2.82 mill/uL (4.20-5.40); White Blood Cell (WBC) Count 28.9 thou/uL (4.8-10.8)
[2016-11-24] MEDS: Potassium Chloride 20 MEQ TAB PO SCH ×3 (07:00→11:00)
[2016-11-24 07:36] LABS: Magnesium 1.9 mg/dL (1.6-2.6)
--- NOTE | 2016-11-24 07:48 | RAD ---
SINGLE VIEW OF CHEST: Date: 11/24/16 COMPARISON: 11/22/16. HISTORY: Hypoxia and pneumonia. FINDINGS: Single view of the chest shows a normal sized cardiomediastinal silhouette with atherosclerotic calc ifications in the aorta. Increased interstitial lung markings are present. Multifocal superimposed i nfiltrates are seen in the lungs, unchanged. There may be small bilateral pleural effusions. IMPRESSION: Stable exam. POS: VALERIE
[2016-11-24] MEDS ORDERED: Vancomycin HCl 1 GM in Premix Bag 1 BAG IVPB SCH (08:00)
--- NOTE | 2016-11-24 08:20 | PRG ---
DATE OF SERVICE: 11/24/2016 She is still having problems with encephalopathy. The family said she got to sleep about 4:00 this morning with some Ambien. PHYSICAL EXAMINATION: VITAL SIGNS: On exam her temperature is 97.8, pulse 99, respirations 26, O2 sat 91% on 5 liters. S he is currently somnolent. HEENT: Unremarkable. NECK: No JVD. LUNGS: Coarse rhonchi. CARDIAC: S1 and S2 regular. ABDOMEN: Soft. EXTREMITIES: Trace edema. LABORATORY DATA: White blood cell count 28.9, hematocrit 28.8, platelet count 296. Sodium 147, pot assium 2.9, chloride 108, CO2 26, BUN 17, creatinine 0.5, glucose 146 ASSESSMENT: 1. Probable chronic aspiration pneumonia. 2. Altered mental status which has not improved. 3. Dementia. PLAN: I believe a PEG tube is planned for the future. She is DNR. She continues on antibiotics. Her chances for improve back to baseline seem poor.
[2016-11-24] MEDS: busPIRone HCl 5 MG TAB PO SCH ×2 (08:23→09:00)
[2016-11-24] MEDS: Cyanocobalamin (Vitamin B-12) 1,000 MCG TAB PO SCH ×2 (08:23→09:00)
[2016-11-24] MEDS: Folic Acid 1 MG TAB PO SCH ×2 (08:23→09:00)
[2016-11-24] MEDS: Heparin 5,000 UNITS/ML VIAL SC SCH ×2 (08:24→14:13)
[2016-11-24] MEDS: Famotidine/PF 20 mg/2ml Vial SLOW IVP SCH (08:24)
[2016-11-24] MEDS: Nystatin 500,000 UNITS/5 ML UDCUP SSW SCH ×4 (08:24→18:04)
[2016-11-24] MEDS ORDERED: Non-Formulary Item 1 EACH (Fluticasone/Salmeterol [Advair Diskus 250/50] 1 PUFF) INH SCH (09:00)
--- NOTE | 2016-11-24 11:35 | PDOC.PN ---
- Subjective Encounter Start Date: 11/24/16 Encounter Start Time: 10:10 pt was sleepy this morning, Patient seen and examined. No overnight events - Objective Resuscitation Status: Resuscitation Status DNR:Do Not Resuscitate MAR Reviewed: Yes Vital Signs & Weight: Vital Signs (12 hours) Temp Pulse Resp BP Pulse Ox 11/24/16 11:08 98.6 F 97 24 H 183/76 H 97 11/24/16 09:33 94 22 H 96 11/24/16 08:00 98.6 F 99 26 H 196/73 H 96 11/24/16 05:59 99 26 H 11/24/16 01:27 106 H 24 H Weight Weight 128 lb 3.886 oz I&O: 11/23/16 11/24/16 11/25/16 06:59 06:59 06:59 Intake Total 1800 Output Total 1225 800 Balance -1225 1000 Result Diagrams: 11/24/16 05:12 11/24/16 05:12 Phys Exam - Physical Examination Constitutional: NAD HEENT: PERRLA, moist MMs, sclera anicteric Neck: no JVD, supple Respiratory: no wheezing, no rales, no rhonchi Cardiovascular: RRR, no significant murmur, no rub Gastrointestinal: soft, non-tender, no distention, positive bowel sounds Musculoskeletal: no edema, pulses present Neurological: non-focal, normal sensation Lymphatic: no nodes Skin: no rash, normal turgor Dx/Plan (1) Abnormal LFTs Code(s): R79.89 - OTHER SPECIFIED ABNORMAL FINDINGS OF BLOOD CHEMISTRY Status : Acute (2) Acute encephalopathy Code(s): G93.40 - ENCEPHALOPATHY, UNSPECIFIED Status: Acute (3) Acute respiratory failure with hypoxemia Code(s): J96.01 - ACUTE RESPIRATORY FAILURE WITH HYPOXIA Status: Acute (4) Aspiration pneumonia Code(s): J69.0 - PNEUMONITIS DUE TO INHALATION OF FOOD AND VOMIT Status: Acute (5) Demand ischemia Code(s): I24.8 - OTHER FORMS OF ACUTE ISCHEMIC HEART DISEASE Status: Acute (6) Hypokalemia Code(s): E87.6 - HYPOKALEMIA Status: Acute (7) Hypomagnesemia Code(s): E83.42 - HYPOMAGNESEMIA Status: Acute (8) Oropharyngeal dysphagia Code(s): R13.12 - DYSPHAGIA, OROPHARYNGEAL PHASE Status: Acute (9) Sepsis with acute organ dysfunction Code(s): A41.9 - SEPSIS, UNSPECIFIED ORGANISM; R65.20 - SEVERE SEPSIS WITHOUT SEPTIC SHOCK Status: Acute (10) Macrocytic anemia Code(s): D53.9 - NUTRITIONAL ANEMIA, UNSPECIFIED Status: Chronic - Plan cont current plan of care, plan discussed w/ family, continue antibiotics, PT/OT , social service technician, respiratory therapy * will restart her BP meds today * not stable for discharge yet * medication reviewed as below * symptomatic treatment. * titrate oxygen * continue current antibiotics * nystatin SSW * add folic acid, vitamin B12 * DC IVF * add vancomycin. Review of Systems - Review of Systems Other: unable to review due to sleepiness - Medications/Allergies Allergies/Adverse Reactions: Allergies Allergy/AdvReac Type Severity Reaction Status Date / Time No Known Drug Allergies Allergy Verified 11/18/16 23:08 Medications: Current Medications Acetaminophen (Tylenol) 650 mg PO Q4H PRN PRN Reason: Headache/Fever or Pain Acetaminophen/Codeine Phosphate (Tylenol #3) 1 tab PO Q4H PRN PRN Reason: Pain Last Admin: 11/22/16 22:32 Dose: 1 tab Al Hydroxide/Mg Hydroxide (Maalox) 15 ml PO Q4H PRN PRN Reason: Heartburn or Indigestion Albuterol Sulfate (Ventolin) 2.5 mg NEB Q2H PRN PRN Reason: Wheezing Last Admin: 11/21/16 00:52 Dose: 2.5 mg Albuterol/Ipratropium (Duoneb) 3 ml NEB [id number] [facility] Last Admin: 11/24/16 09:33 Dose: 3 ml Artificial Tears (Tears Naturale) 0 drop EA EYE PRN PRN PRN Reason: Dry Eyes Buspirone HCl (Buspar) 7.5 mg PO BID [facility] Last Admin: 11/24/16 08:23 Dose: 7.5 mg Citalopram Hydrobromide (Celexa) 20 mg PO DAILY [facility] Last Admin: 11/24/16 08:23 Dose: 20 mg Cyanocobalamin (Vitamin B-12) 1,000 mcg PO DAILY [facility] Last Admin: 11/24/16 08:23 Dose: 1,000 mcg Famotidine (Pepcid) 20 mg SLOW IVP DAILY [facility] Last Admin: 11/24/16 08:24 Dose: 20 mg Folic Acid (Folvite) 1 mg PO DAILY [facility] Last Admin: 11/24/16 08:23 Dose: 1 mg Guaifenesin (Robitussin Sf) 200 mg PO Q4H PRN PRN Reason: Cough Heparin Sodium (Porcine) (Heparin) 5,000 units SC TID [facility] Last Admin: 11/24/16 08:24 Dose: 5,000 units Hydralazine HCl (Apresoline) 10 mg SLOW IVP Q4H PRN PRN Reason: SBP <180 Last Admin: 11/22/16 20:50 Dose: 10 mg Iron Sucrose 200 mg/ Sodium (Chloride) 260 mls @ 125 mls/hr IVPB Q24HR [facility] Stop: 11/24/16 15:35 Last Admin: 11/23/16 13:38 Dose: 260 mls Meropenem 1 gm/ Sodium (Chloride) 100 mls @ 200 mls/hr IVPB 0400,1200,2000 [facility] Last Admin: 11/24/16 10:34 Dose: 100 mls Vancomycin HCl 1 gm/ Device 200 mls @ 200 mls/hr IVPB 0800,2000 [facility] Last Admin: 11/24/16 08:23 Dose: 200 mls Loperamide HCl (Imodium) 2 mg PO PRN PRN PRN Reason: Diarrhea/Loose Stools Lorazepam (Ativan) 1 mg PO HS [facility] Magnesium Hydroxide (Milk Of Magnesium) 30 ml PO DAILYPRN PRN PRN Reason: Constipation Mineral Oil/White Petrolatum (Eucerin Cream) 0 gm TOP BIDPRN PRN PRN Reason: Dry Skin Miscellaneous Medication (Pharmacy To Dose) 0 each IVPB ASDIR PRN PRN Reason: Pharmacy to Dose VANCOMYCIN Mometasone Furoate/Formoterol Fumar (Dulera 200 Mcg/5 Mcg Inhaler) 2 puff INH BID-RT [facility] Nystatin (Mycostatin) 500,000 units SSW QID [facility] Last Admin: 11/24/16 08:24 Dose: 500,000 units Olmesartan (Benicar) 20 mg PO DAILY [facility] Last Admin: 11/24/16 08:23 Dose: 20 mg Ondansetron HCl (Zofran) 4 mg IVP Q6H PRN PRN Reason: Nausea/Vomiting Ondansetron HCl (Zofran Odt) 4 mg PO Q6H PRN PRN Reason: Nausea/Vomiting Senna (Senokot) 2 tab PO HSPRN PRN PRN Reason: Constipation Sodium Chloride (Flush - Normal Saline) 10 ml IVF Q12HR [facility] Last Admin: 11/24/16 08:24 Dose: Not Given Sodium Chloride (Flush - Normal Saline) 10 ml IVF PRN PRN PRN Reason: Saline Flush Last Admin: 11/23/16 12:34 Dose: 10 ml Sodium Chloride ([place] Nasal [place] 0.65%) 0 ml EA NARE QIDPRN PRN PRN Reason: Nasal Congestion Verapamil HCl (Calan Sr) 240 mg PO DAILY [facility] Last Admin: 11/24/16 08:23 Dose: 240 mg Zolpidem Tartrate (Ambien) 5 mg PO HSPRN PRN PRN Reason: Insomnia Last Admin: 11/23/16 19:57 Dose: 5 mg
[2016-11-24] MEDS: Iron Sucrose Complex 200 MG in Sodium Chloride 0.9% 250 ML 250 ML IVPB SCH (14:00)
[2016-11-24] MEDS ORDERED: Potassium Chloride 40 MEQ in Sodium Chloride 0.9% 250 ML 250 ML IVPB SCH (16:00)
[2016-11-24 16:39] VITALS: BP 50/33; TEMP 97.8
[2016-11-24] MEDS ORDERED: Mometasone/Formoterol 120 PUFF INHALER INH SCH (18:30)
[2016-11-24] MEDS ORDERED: Lorazepam 1 MG TAB PO SCH (21:00)
--- NOTE | 2016-11-24 21:04 | DS ---
DATE OF ADMISSION: 11/18/2016 DATE OF : 11/24/2016 PRIMARY CAUSE OF : Sepsis with acute organ dysfunction, acute respiratory failure with hypoxia , aspiration pneumonia, acute encephalopathy, demand ischemia of myocardium. CONTRIBUTING DIAGNOSES: Oropharyngeal dysphagia, macrocytic anemia, abnormal electrolytes. PRIMARY PROCEDURES AND OPERATIONS: None. RADIOLOGICAL INVESTIGATION: Chest x-ray, abdomen and pelvis CT scan, CT brain and ultrasound of the lower extremity, chest x-ray. SIGNIFICANT LABS: WBC 28.9, creatinine 0.50. SHORT HOSPITAL SUMMARY: This patient was admitted by Dr. Chance on 11/18/2016. Please see his H and P for further details. The patient was admitted for increasing shortness of breath, nausea, vom iting, and delirium. The patient was diagnosed with acute hypoxic respiratory failure and she had d emand ischemia. Her chest x-ray was consistent with infiltration. She had aspiration. She failed a swallowing evaluation, the patient and family member were not interested in going for PEG tube sharon cement. This patient was admitted in [facility] and that is why Dr. Peralta was following this patient. Orthopaedic physician was also consulted. Dr. Ciara Orellana also saw this patient during this admissio n. The patient was DNR while in hospital. The patient was transferred to medical floor. At that time, we continued with IV antibiotic therapy. This patient did not have any improvement in her pneumoni a and her condition declined. This patient's blood pressure gradually dropped and evening time, pat guanako and was declared and body was released for a .
[2016-11-25] MEDS ORDERED: Multivitamin W/ Minerals 1 TAB PO SCH (09:00)
== END 2016-11-24 18:40 | disposition expired | DRG 871 ==
LOC: ERS 19:08 → IMCU/EMU 22:25 → T4-A 11-22 18:16
PROVIDERS: ADMIT Internal Medicine; ATTEND Internal Medicine
PROC: 30233N1 Transfusion of Nonautologous Red Blood Cells into Peripheral Vein, Percutaneous Approach (ICD-10-PCS; principal; 2016-11-20)
DX: A41.9 Sepsis, unspecified organism (principal); J69.0 Pneumonitis due to inhalation of food and vomit; J96.01 Acute respiratory failure with hypoxia; I24.8 Other forms of acute ischemic heart disease; D62 Acute posthemorrhagic anemia; G92 Toxic encephalopathy; E83.42 Hypomagnesemia; I10 Essential (primary) hypertension; F41.9 Anxiety disorder, unspecified; F43.12 Post-traumatic stress disorder, chronic; K21.9 Gastro-esophageal reflux disease without esophagitis; J45.909 Unspecified asthma, uncomplicated; Z98.890 Other specified postprocedural states; F03.90 Unspecified dementia, unspecified severity, without behavioral disturbance, psychotic disturbance, mood disturbance, and anxiety; Z66 Do not resuscitate; R65.20 Severe sepsis without septic shock; R13.12 Dysphagia, oropharyngeal phase; H35.30 Unspecified macular degeneration; E87.6 Hypokalemia; D50.9 Iron deficiency anemia, unspecified; Z96.643 Presence of artificial hip joint, bilateral
CPT/HCPCS: 36415; 36416; 36430; 51701; 70450; 71010; 74177; 80048; 80053; 80202; 81003; 81015; 82140; 82553; 82607; 82728; 82746; 83540; 83550; 83735; 84100; 84484; 85025; 86850; 86900; 86901; 87040; 87086; 93005; 93970; 94640; 96361; 96365; 96367; 96375; A4216; A4353; G8978-GP-CM; G8979-GP-CK; G8987-GO-CN; G8988-GO-CL; G8996-GN-CN; G8997-GN-CJ; J0360; J1170; J1644; J1756; J2185; J2920; J3370; J3480; J7050; J7620; P9016; S0028